=== PATIENT | female | born 1970 | race Caucasian/White ===

== ENCOUNTER 2025-08-13 14:02 | Outpatient (CLI) | payer OTHER | END 2025-08-13 14:03 | disposition home or self-care (01) | LOC: CSHMAMMO 14:02 | PROVIDERS: ATTEND Nurse Practitioner Women's Health | DX: R92.8 Other abnormal and inconclusive findings on diagnostic imaging of breast (principal); R92.30 Dense breasts, unspecified | CPT/HCPCS: G0279 ==